=== PATIENT | female | born 1940 | race Two or more races ===

== ENCOUNTER 2022-11-27 09:37 | Outpatient (CLI) | payer OTHER | END 2022-11-27 09:39 | disposition home or self-care (01) | LOC: NUCLEAR 09:37 | PROVIDERS: ATTEND Psychiatry & Neurology Clinical Neurophysiology | DX: G30.1 Alzheimer's disease with late onset (principal); G31.83 Neurocognitive disorder with Lewy bodies | CPT/HCPCS: 78803; A9557 ==